=== PATIENT | female | born 1985 | race Caucasian/White ===

== ENCOUNTER 2017-02-13 15:23 | Emergency (ER) | payer OTHER ==
--- NOTE | 2017-02-25 10:17 | ER ---
ADMIT: 02/13/2017 RM/LOC: ER [facility] MR#: [id number] [id number] [place], [place] [id number] [place] [address] Emergency Room Report SEX: F AGE: 31 : 1985 DATE: 02/13/2017 ADDENDUM: CHIEF COMPLAINT: Abdominal pain. HISTORY OF PRESENT ILLNESS: This is a 31-year-old female, who ate at [employer] around 12:30, then in an hour, she had sudden onset of epigastric pain, pretty severe that she had to lay on the floor at her work. COURSE IN THE EMERGENCY ROOM: CBC, CMP, and lipase were done. Everything is negative except for a slightly low potassium at 3.6. She did receive a GI cocktail and Toradol. Her pain is completely resolved. I did suggest that she follow up with Dr. Modi for an outpatient abdominal ultrasound or HIDA scan to evaluate her gallbladder until then to follow a non-fat diet. CLINICAL IMPRESSION: Abdominal pain. RACHEL Hagen / Delmar López MD / aydee JOB #: [id number] CC: Delmar López MD, Attending Physician Delmar López MD, Family Physician
== END 2017-02-13 17:17 | disposition home or self-care (01) ==
LOC: ER 15:23
DX: R10.13 Epigastric pain (principal)